=== PATIENT | male | born 1975 | race Hispanic/Latino ===

== ENCOUNTER 2021-06-03 19:48 | Emergency (ER) | payer BC ==
[~2021-06-03] VITALS: Ht 175.3 cm; Wt 98.9 kg
[2021-06-03 20:23] VITALS: BP 125/80
[2021-06-03] MEDS ORDERED: KETOROLAC 60 MG VIAL (30MG/ML) ONE (20:56)
[2021-06-03] MEDS ORDERED: ORPHENADRINE CITRATE 30 MG/ML ML ONE (20:56)
[2021-06-03] MEDS ORDERED: ORPHENADRINE CITRATE 30 MG/ML ML IM ONE (21:00)
[2021-06-03] MEDS ORDERED: KETOROLAC 60 MG VIAL (30MG/ML) IM ONE (21:00)
[2021-06-03] MEDS ORDERED: HYDROCODONE/ACETAMINOPHEN 5/325 MG TAB PO ONE (21:00)
[2021-06-03] MEDS ORDERED: CYCL-309 PO (22:12)
[2021-06-03] MEDS ORDERED: MELO7.5T12 PO (22:12)
[2021-06-05] MEDS ORDERED: ORPHENADRINE CITRATE 30 MG/ML ML IM SCH (06:30)
[2021-06-05] MEDS ORDERED: KETOROLAC 60 MG VIAL (30MG/ML) IM SCH (06:30)
[2021-06-05] MEDS ORDERED: ORPH-43 PO (07:05)
[2021-06-05] MEDS ORDERED: LIDOP TD (07:21)
== END 2021-06-03 22:18 | disposition home or self-care (01) ==
LOC: EDH 19:48
DX: S39.012A Strain of muscle, fascia and tendon of lower back, initial encounter (principal); S29.012A Strain of muscle and tendon of back wall of thorax, initial encounter; S20.212A Contusion of left front wall of thorax, initial encounter; Z79.1 Long term (current) use of non-steroidal anti-inflammatories (NSAID); W18.39XA Other fall on same level, initial encounter; Y93.9 Activity, unspecified; Y92.89 Other specified places as the place of occurrence of the external cause; Y99.8 Other external cause status
CPT/HCPCS: 71101; 72100; 96372 ×2; 99284; J1885; J2360

== ENCOUNTER 2024-03-07 03:23 | Emergency (ER) | payer SELFPAY ==
[~2024-03-07] VITALS: Ht 175.3 cm; Wt 103.9 kg
[~2024-03-07 03:23] MED LIST: CYCL-309 PO; LIDOP TD; MELO7.5T12 PO; ORPH100T4 PO
[2024-03-07] MEDS: ORPHENADRINE 60MG/2ML IM ONE (03:44)
--- NOTE | 2024-03-07 03:44 | ERN ---
General Chief Complaint: Cough Stated Complaint: COUGH, RUNNY NOSE, CHEST PAIN, BACK PAIN Time Seen by MD: 03:25 Source: patient History of Present Illness Initial Comments PATIENT IS A 48-YEAR-OLD MALE COMING IN TO BE EVALUATED FOR LEFT SHOULDER LEFT SCAPULA PAIN. PER PATIENT HE WAS HAVING THIS PAIN ON THE RIGHT PECTORALIS MAJOR RADIATING TO THE POSTERIOR SCAPULAR REGION DECIDED TO COME IN TO BE EVALUATED. Allergies: Coded Allergies: No Known Allergies (Unverified Allergy, Unknown, 06/03/21) Home Meds Active Scripts Lidocaine (Lidoderm Patch 5%) 1 Patch Patch, 1 PATCH TD DAILY for 30 Days, #30 ADH.PATCH 0 Refills Prov:MARIBELL ORTEGA MD 06/05/21 Orphenadrine Citrate (Orphenadrine Citrate) 100 Mg Tablet.er, 100 MG PO [id number], #20 TAB 0 Refills Prov:MARIBELL ORTEGA MD 06/05/21 Cyclobenzaprine HCl (Cyclobenzaprine HCl) 10 Mg Tablet, 10 MG PO TIDP, #20 TAB 0 Refills Prov:MARIBELL ORTEGA MD 06/03/21 Meloxicam (Mobic) 7.5 Mg Tablet, 7.5 MG PO DAILY, #10 TAB 0 Refills Prov:MARIBELL ORTEGA MD 06/03/21 Past Medical History Past Medical History: Bronchitis Past Surgical History: None Social History Social History: Lives with family ROS Dictation CONSTITUTIONAL: NO CHILLS, NO FEVER, NO WEAKNESS, NO DIAPHORESIS, NO MALAISE. HEAD/FACE: NO SIGNS OF TRAUMA. EENT: NO EYE PAIN, NO BLURRED VISION, NO TEARING, NO DOUBLE VISION, NO EAR PAIN, NO EAR DISCHARGE, NO NOSE PAIN, NO NASAL CONGESTION, NO THROAT PAIN, NO THROAT SWELLING, NO MOUTH PAIN. RESPIRATORY: NO COUGH, NO ORTHOPNEA, NO SOB, NO STRIDOR, NO WHEEZING. CARDIOVASCULAR: NO CHEST PAIN, NO EDEMA, NO PALPITATIONS, NO SYNCOPE. GASTROINTESTINAL/ABDOMINAL: NO ABDOMINAL PAIN, NO CONSTIPATION, NO DIARRHEA, NO NAUSEA, NO VOMITING. GENITOURINARY: NO ABNORMAL DISCHARGE, NO DYSURIA, NO FREQUENT URINATION, NO HEMATURIA. NO COMPLAINTS OF PAIN IN THE GENITALS. MUSCULOSKELETAL: NO BACK PAIN, NO GOUT, NO JOINT PAIN, JOINT SWELLING, MUSCLE PAIN, NO MUSCLE STIFFNESS, NO NECK PAIN. INTEGUMENTARY: NO CHANGE IN COLOR, NO CHANGE IN HAIR/NAILS, NO DRYNESS, NO LESION, NO LUMPS, NO RASH. NEUROLOGICAL/PSYCH: NO ANXIETY, NOT DEPRESSED, NO EMOTIONAL PROBLEM, NO HEADACHE, NO NUMBNESS, NO PRE-EXISTING DEFICIT, NO HISTORY OF SEIZURES, NO TREMORS, NO WEAKNESS. HEMATOLOGIC/LYMPHATIC: NOT ANEMIC, NO HISTORY OF BLOOD CLOTS, NO APPARENT BLEEDING, NO BRUISING, GLANDS NOT SWOLLEN. ALL SYSTEMS NEGATIVE, EXCEPT NOTED. Physical Exam Physical Exam Dictation VITAL SIGNS: REVIEWED. GENERAL APPEARANCE: ALERT, ORIENTED X3, NO ACUTE DISTRESS, OBESE. HEAD AND FACE: NON-TRAUMATIC. EYES: PERRL, PINK CONJUNCTIVAS, EYELID NO TRAUMA, ANTERIOR CHAMBER CLEAR. EARS: PINNAS INTACT AND NO SIGNS OF TRAUMA OR ERYTHEMA. EAR CANALS CLEAR AND NO DISCHARGE. TMS NO ERYTHEMA. NOSE: NO DISCHARGE, NO BLEEDING. OROPHARYNX: MOUTH NORMAL, TEETH NO CARIES, TONGUE PINK. PHARYNX CLEAR, NO ERYTHEMA. TONSILS NO EXUDATES, NO ABSCESSES NOTED. MUCOUS MEMBRANE MOIST. NECK: SUPPLE, NON-TENDER, NO THYROMEGALY, NO MASSES, NO JVD, NO BRUITS. BREAST: DEFERRED. CHEST: TENDERNESS, NO CREPITUS, NO PARADOXICAL MOVEMENT, NO RETRACTIONS. LUNGS: CLEAR, WELL-VENTILATED, SYMMETRIC, NO RALES, NO WHEEZING, NO RHONCHI, NO STRIDOR, GOOD BREATH SOUNDS BILATERALLY. HEART: REGULAR RATE, REGULAR RHYTHM, NO MURMUR, NO GALLOPS. VASCULAR: NO PERIPHERAL EDEMA. ABDOMEN: SOFT, POSITIVE BOWEL SOUNDS, NONDISTENDED, NO GUARDING, NONTENDER, NO REBOUND, NO MASSES NO HEPATOMEGALY, NO SPLENOMEGALY, NO BELL'S SIGN, NO HERNIAS. RECTAL: DEFERRED. GENITAL: DEFERRED. NEUROLOGICAL: NORMAL SPEECH, GROSS MOTOR FUNCTION INTACT, GROSS SENSORY FUNCTION INTACT. MUSCULOSKELETAL: NECK NONTENDER, FULL RANGE OF MOTION, CHEMICAL INSTRUMENTATION OFFICER, FULL RANGE OF MOTION. EXTREMITIES: NONTENDER, FULL RANGE OF MOTION. SKIN: COLOR PINK, DRY, NO TURGOR, NO RASH, NO LACERATIONS, NO ABRASIONS, NO CONTUSIONS. LYMPHATICS: DEFERRED. Results EKG/XRAY/US/CT/MRI EKG Comment 03/07/2024 TIME 3:39 A.M. VENTRICULAR RATE 62 NORMAL SINUS RHYTHM MA [address] WAVE ELEVATION OR DEPRESSION MDM MDM: DIFFERENTIAL DIAGNOSIS: SUBSCAPULARIS MUSCLE STRAIN, MUSCLE STRAIN, PECTORALIS MUSCLE STRAIN PATIENT IS A 48-YEAR-OLD MALE COMING IN TO BE EVALUATED FOR RIGHT PECTORALIS MAJOR AND RIGHT SUBSCAPULARIS MUSCLE STRAIN. PT STATES THAT HE WAS LAYING DOWN WOKE UP STARTED HAVING SOME DISCOMFORT IN THAT AREA DECIDED TO COME IN TO BE EVALUATED. EKG PERFORMED NEGATIVE FOR ACUTE FINDINGS. PATIENT RECEIVED SOME ANTISPASMODICS AND ANTI-INFLAMMATORIES STATES THAT PAIN HAS SUBSIDED. PATIENT WILL BE DISCHARGED WITH A DATE NOTICES A SUBSCAPULARIS MUSCLE STRAIN ANTISPASMODICS ANTI-INFLAMMATORIES WILL ALSO BE PRESCRIBED. ED Course Orders Procedure Category Date Status Time Orphenadrine Citrate PHA 03/07/24 In Process (Norflex) 04:00 Ketorolac PHA 03/07/24 In Process Tromethamine 30mg/Ml 04:00 12 Lead Ekg Tracing- EKG 03/07/24 Logged Technical 03:34 Current Medications Medications (Trade) Dose Ordered Sig/Rivera Route PRN Reason Start Time Stop Time Status Last Admin Dose Admin Ketorolac Tromethamine (toRADol) 30 mg ONCE ONCE IM 03/07/24 04:00 03/07/24 04:01 03/07/24 03:45 Orphenadrine Citrate (Norflex) 60 mg ONCE ONCE IM 03/07/24 04:00 03/07/24 04:01 03/07/24 03:44 Vital Signs Date Time Temp Pulse Resp B/P (MAP) Pulse Ox O2 Delivery O2 Flow Rate FiO2 03/07/24 03:24 97.9 68 18 166/89 96 Room Air HEART Score Response (Comments) Value History: Low suspicion (0) 0 EKG: Normal 0 Age: 45-65yrs (+1) 1 Risk Factors: No known risk factors (0) 0 Initial Troponin: Normal limit (0) 0 HEART Score Risk: Low Risk for MACE (1-3) Total 1 DX & DISP Disposition: Discharge Departure Impression: Primary Impression: Acute myofascial strain Condition: Stable Scripts Diclofenac Sodium (Voltaren Arthritis Pain) 1 % Gel..gram. 20 GM TP BID for 14 Days, #1 TUBE Prov: RAFAEL JANE MD 03/07/24 Methocarbamol (Robaxin) 750 Mg Tab 1 TAB PO BID for 7 Days, #14 TAB 0 Refills Prov: RAFAEL JANE MD 03/07/24 Additional Instructions: FOLLOW-UP WITH PRIMARY CARE PROVIDER IN 1 TO 2 DAYS. TAKE MEDICATIONS DIRECTED HERE IN THE EMERGENCY ROOM. OKAY TO CONTINUE HOME MEDICATIONS UNLESS OTHERWISE DISCUSSED DURING YOUR VISIT IN THE EMERGENCY ROOM TODAY. RETURN TO YOUR NEAREST EMERGENCY ROOM IF SYMPTOMS WORSEN OR IF THERE IS NO IMPROVEMENT. CALL 911 IF YOU NEED IMMEDIATE ASSISTANCE. TAKE TYLENOL [id number] NEEDED AND IF NO CONTRAINDICATIONS ARE PRESENT. INCREASE ORAL HYDRATION. A WOUND CULTURE OR URINE CULTURE WAS ORDERED HERE IN THE EMERGENCY ROOM DEPARTMENT PLEASE FOLLOW-UP WITH PRIMARY CARE PROVIDER AND ADVISE THEM TO GET REPEAT PORTS FROM OUR FACILITY. IF YOU HAD ANY MARIZOL WRAP/SPLINTS THAT WERE APPLIED HERE, PL EASE DO NOT REMOVE THEM UNTIL YOU SEE YOUR PRIMARY CARE OR SPECIALTY. REFERRALS: Referrals: SELF,REFERRAL (PCP) OSEI WALKER MD Time of Disposition: 04:00 RAFAEL JANE MD Mar 07, 2024 03:44
[2024-03-07] MEDS: ketOROlac 30MG VIAL (30MG/ML) IM ONE (03:45)
[2024-03-07] MEDS ORDERED: DICL20GE TP (04:01)
[2024-03-07] MEDS ORDERED: METH-662 PO (04:01)
[2024-03-07 04:08] VITALS: BP 145/84; PULSE 71; RESP 20; TEMP 98.5; O2SAT 96
--- NOTE | 2024-03-07 05:49 | EKG ---
[facility] Test Date: 2024-03-07 Test Time: 03:39:35 Pat Name: MINDI MONTILLA Department: ED Room: Gender: M Pitch Worker: [id number] : [id number] Requested By: RAFAEL JANE Order Number: [id number] Reading MD: Maxine Villalta Measurements Intervals Seaman Rate: 62 P: 38 MD: 162 QRS: 21 QRSD: 92 T: -25 QT: 407 QTc: 415 Interpretive Statements Sinus rhythm No previous ECG available for comparison Electronically Signed On 03-09-2024 11:33:15 REVERBERATORY FURNACE OPERATOR by Maxine Villalta Please click the below link to view image of tracing.
== END 2024-03-07 04:23 | disposition home or self-care (01) ==
LOC: EDH 03:23
DX: S46.812A Strain of other muscles, fascia and tendons at shoulder and upper arm level, left arm, initial encounter (principal); Z79.1 Long term (current) use of non-steroidal anti-inflammatories (NSAID); X58.XXXA Exposure to other specified factors, initial encounter; Y93.89 Activity, other specified; Y92.89 Other specified places as the place of occurrence of the external cause; Y99.8 Other external cause status
CPT/HCPCS: 99284; 96372 ×2; 93005; J1885; J2360

== ENCOUNTER 2024-05-15 02:07 | Emergency (ER) | payer SELFPAY ==
[~2024-05-15] VITALS: Ht 175.3 cm; Wt 106.6 kg
[~2024-05-15 02:07] MED LIST changes: +DICL20GE TP; +METH-662 PO
[2024-05-15] MEDS: acetaMINOPHEN 325 MG TAB PO ONE (02:20)
--- NOTE | 2024-05-15 02:55 | ERN ---
ED Note History of Present Illness Stated Complaint: FLU Chief Complaint: Flu Symptoms Time Seen by MD: 02:28 Dictation: This is a 48-year-old obese male who presented to the emergency room with complaints of body aches headache and feeling dehydrated for the past 2 days. He thought he had the flu and came in for evaluation He had left-sided molar tooth extracted a couple of days ago Temperature 99.7 pulse 110 respirations 18 blood pressure 163/110 pulse oximetry 95% on room air Allergies: Coded Allergies: No Known Allergies (Unverified Allergy, Unknown, 06/03/21) Home Meds Active Scripts Amoxicillin/Potassium Clav (Augmentin 500-125 Tablet) 500 Mg-125 Mg Tablet, 1 TAB PO BID for 10 Days, #20 TAB 0 Refills Prov:KEVIN SCOTT MD 05/15/24 Diclofenac Sodium (Voltaren Arthritis Pain) 1 % Gel..gram., 20 GM TP BID for 14 Days, #1 TUBE Prov:RAFAEL JANE MD 03/07/24 Methocarbamol (Robaxin) 750 Mg Tab, 1 TAB PO BID for 7 Days, #14 TAB 0 Refills Prov:RAFAEL JANE MD 03/07/24 Lidocaine (Lidoderm Patch 5%) 1 Patch Patch, 1 PATCH TD DAILY for 30 Days, #30 ADH.PATCH 0 Refills Prov:MARIBELL ORTEGA MD 06/05/21 Orphenadrine Citrate (Orphenadrine Citrate) 100 Mg Tablet.er, 100 MG PO [id number], #20 TAB 0 Refills Prov:MARIBELL ORTEGA MD 06/05/21 Cyclobenzaprine HCl (Cyclobenzaprine HCl) 10 Mg Tablet, 10 MG PO TIDP, #20 TAB 0 Refills Prov:MARIBELL ORTEGA MD 06/03/21 Meloxicam (Mobic) 7.5 Mg Tablet, 7.5 MG PO DAILY, #10 TAB 0 Refills Prov:MARIBELL ORTEGA MD 06/03/21 Past Medical History Past Medical History: Pneumonia Surgical History: Other Surgical History Other: LEFT ANKLE SX Family History: Negative Social History: Lives with family RN Note Reviewed/Agreed w/PFSH: Yes Review of System Dictation Constitutional: Positive for fever,chills, body aches and denied weight loss Eyes: Negative for injury, pain,redness, and discharge ENT: Negative for injury,pain or swelling Cardiovascular: Negative for chest pain, palpitations, and edema Respiratory: Negative for shortness of breath, cough, and wheezing, Abdomen/GI: Negative for abdominal pain, nausea, vomiting, diarrhea, and constipation Back: Negative for injury and pain : Negative for injury, bleeding and discharge MS/Extremity: Negative for injury and deformity Skin: Negative for rash, and discoloration Neuro: Negative for headache, weakness, numbness, tingling, and seizure Psych: Negative for suicide ideation, homicidal ideation, and hallucinations Initial Vital Sign VS Vital Signs Date Time Temp Pulse Resp B/P (MAP) Pulse Ox O2 Delivery O2 Flow Rate FiO2 05/15/24 02:09 99.7 110 18 163/110 95 Room Air 0 05/15/24 03:38 21 Physical Exam Dictation General: awake, alert, NAD Head/Face: Normocephalic, atraumatic Eyes: PERRL, EOMI, vision at baseline ENT: oral cavity clear, TMs clear, no signs of infection Neck: Trachea midline, supple, no nuchal rigidity Cardiovascular: RRR, normal S1/S2, No MRGs, no JVD Respiratory: CTAB, no respiratory distress, No rales or wheezes Abdomen: Soft, non-tender, non-distended, normal bowel sounds, no guarding or rebound. Skin: Warm, dry, normal turgor, no rash MS/Extremity: Pulses equal, no cyanosis, neurovascular intact, FROM Neuro: COAx4, GCS 15, strength 5/5, CN 2-12 intact, normal cerebellar exam, normal gait, Psych: Normal behavior, mood, and affect normal Extremities-trace edema without any palpable cords, Homans sign is negative Results (Laboratory/Radiology) Laboratory/Radiology Laboratory Tests Test 05/15/24 03:11 Influenza Type A Antigen Negative For Type A Influenza Type B Antigen Negative For Type B SARS-CoV-2 Antigen (Rapid) PRESUMPTIVE NEGATIVE Group A Streptococcus Rapid positive (NEGATIVE) *A Labs Reviewed?: Yes ED Course ED Course Orders Procedure Category Date Status Time Covid19 (Sars Antigen LAB 05/15/24 Complete Rapid) 02:13 Influenza Type A & B, LAB 05/15/24 Complete Rapid 02:13 Rapid (Group A Strep) LAB 05/15/24 Complete 02:13 Acetaminophen 325 Tab PHA 05/15/24 Complete (Tylenol 325mg Tab 02:30 Amox/Clav 875/125mg PHA 05/15/24 In Process Tab (Augmentin 875-1 05:00 Current Medications Medications (Trade) Dose Ordered Sig/Rivera Route PRN Reason Start Time Stop Time Status Last Admin Dose Admin Acetaminophen (TYLenol 325MG TAB) 650 mg ONCE ONCE PO 05/15/24 02:30 05/15/24 02:31 DC 05/15/24 02:20 Amoxicillin/ Clavulanate Potassium (Augmentin 875-125 Tablet) 1 each ONCE ONCE PO 05/15/24 05:00 05/15/24 05:01 Vital Signs Date Time Temp Pulse Resp B/P (MAP) Pulse Ox O2 Delivery O2 Flow Rate FiO2 05/15/24 03:38 100.8 95 20 152/86 96 Room Air* 0 21 05/15/24 02:20 99.7 05/15/24 02:09 99.7 110 18 163/110 95 Room Air 0 We will perform diagnostic labs, advanced imaging and administer medications according to the patient's complaint. Once the results are available, will review and personally interpreted the labs to rule out any acute life- threatening emergency the trach require immediate intervention and treatment. I will then re-evaluate the patient after treatment and diagnostic exams have return to determine whether the patient requires any further testing, can safely be discharged home or need further admission to hospital for additional tr eatment and evaluation. Viral serology was negative for influenza and COVID. Swabs were positive for streptococcal pharyngitis . Dose of Augmentin and DC on Augmentin. Medical Decision Making MDM MDM: Differential diagnosis: Acute viral syndrome, influenza, COVID, strep throat Rationale: Tests considered and ordered secondary to shared decision making include: Previous outside records reviewed: Old ER visits. Risk of complication and/or morbidity or mortality of patient management: None Medications-Per medication reconciliation Need for hospitalization: Patient does not meet criteria for hospitalization. Need for emergency major/minor surgery: No There are no social concerns with this patient. Prescription drug management Prescriptions will include symptomatic care Patient's prior external medical records from other ER visits were reviewed by me as indicated. Prior testing and results from previous visits were reviewed. Prior tests were taken into account with medical decision making and resource utilization, independent historian/historians were used to obtain complete medical history. I independently interpreted the test that were performed, results were reviewed by me and considered findings on radiology if ordered. Medical management and examination interpretation discussions were had by me with other qualified healthcare professionals as indicated for the patient's care. Problem List Problem List: (1) Strep pharyngitis (2) Viral syndrome DX & DISP Disposition: Discharge Departure Impression: Primary Impression: Viral syndrome Additional Impression: Strep pharyngitis Condition: Stable Scripts Amoxicillin/Potassium Clav (Augmentin 500-125 Tablet) 500 Mg-125 Mg Tablet 1 TAB PO BID for 10 Days, #20 TAB 0 Refills Prov: KEVIN SCOTT MD 05/15/24 Additional Instructions: Patient and the caregiver have been informed of all the diagnostic tests and the imaging conducted during the today's visit to the emergency room and has verbalized understanding of the results I have personally reviewed and interpreted all diagnostic exams performed here in the ER today as well as the vital signs documented by the nursing staff. The patient is now being discharged to home and should follow up with the primary care physician or the specialist as directed by the ER staff. Follow-up with primary care provider in 1 to 2 days. Take medications as directed here in the emergency room. Okay to continue home medications unless otherwise discussed during your visit in the emergency room today. Return to your nearest emergency room if symptoms worsen or if there is no improvement. Call 911 if you need immediate assistance. Take Tylenol or Motrin [id number] as needed and if no contraindications are present. Increase oral hydration. A wound culture or urine culture was ordered here in the emergency room department please follow-up with primary care provider and advise them to get repeat ports from our facility. If you had any Jorgito wrap/splints that were applied here, please do not remove them until you see your primary care or specialty. Referrals: SELF,REFERRAL (PCP) KEVIN SCOTT MD May 15, 2024 02:55
[2024-05-15 03:41] VITALS: TEMP 100.8
[2024-05-15 03:41] LABS: INFLUENZA TYPE A Negative For Type A (NEGATIVE); INFLUENZA TYPE B Negative For Type B (NEGATIVE)
[2024-05-15 04:20] LABS: COVID19 (SARS ANTIGEN RAPID) PRESUMPTIVE NEGATIVE (NEGATIVE)
[2024-05-15 04:34] LABS: RAPID GROUP A STREP positive (NEGATIVE)
[2024-05-15] MEDS ORDERED: AMOX-426 PO (04:48)
[2024-05-15] MEDS: AMOX/CLAV 875/125MG TAB PO ONE (04:51)
[2024-05-15] MEDS: ketOROlac 30MG VIAL (30MG/ML) IM ONE ×2 (04:53→05:00)
[2024-05-15 05:17] VITALS: BP 143/80; PULSE 90; RESP 18; TEMP 98.9; O2SAT 96
== END 2024-05-15 05:18 | disposition home or self-care (01) ==
LOC: EDH 02:07
DX: J02.0 Streptococcal pharyngitis (principal); Z79.1 Long term (current) use of non-steroidal anti-inflammatories (NSAID); Z20.822 Contact with and (suspected) exposure to COVID-19
CPT/HCPCS: 99283; 87426; 87880; 87804 ×2; 96372; J1885

== ENCOUNTER 2025-01-01 07:46 | Emergency (ER) | payer SELFPAY ==
[~2025-01-01] VITALS: Ht 175.3 cm; Wt 100.7 kg
[~2025-01-01 07:46] MED LIST changes: +AMOX-426 PO
[2025-01-01 07:47] VITALS: BP 140/92; PULSE 77; RESP 18; TEMP 98
--- NOTE | 2025-01-01 07:52 | ERN ---
General Chief Complaint: Ankle Problem Stated Complaint: LEFT ANKLE PAIN Time Seen by MD: 07:48 History of Present Illness Initial Comments 49-year-old male who presents for left ankle injury. Yesterday he was in the shower any misstepped. He banged the lateral side of his left ankle and foot. He has a bruising this morning with swelling. Neurovascularly intact. No other injuries. No blood thinners. He is ambulatory with an antalgic gait. Allergies: Coded Allergies: No Known Allergies (Unverified Allergy, Unknown, 06/03/21) Home Meds Active Scripts Meloxicam (Meloxicam) 15 Mg Tablet, 15 MG PO DAILY PRN for PAIN for 10 Days, #10 TAB Prov:ANIKA MANCINI DO 01/01/25 Amoxicillin/Potassium Clav (Augmentin 500-125 Tablet) 500 Mg-125 Mg Tablet, 1 TAB PO BID for 10 Days, #20 TAB 0 Refills Prov:KEVIN SCOTT MD 05/15/24 Diclofenac Sodium (Voltaren Arthritis Pain) 1 % Gel..gram., 20 GM TP BID for 14 Days, #1 TUBE Prov:RAFAEL JANE MD 03/07/24 Methocarbamol (Robaxin) 750 Mg Tab, 1 TAB PO BID for 7 Days, #14 TAB 0 Refills Prov:RAFAEL JANE MD 03/07/24 Lidocaine (Lidoderm Patch 5%) 1 Patch Patch, 1 PATCH TD DAILY for 30 Days, #30 ADH.PATCH 0 Refills Prov:MARIBELL ORTEGA MD 06/05/21 Orphenadrine Citrate (Orphenadrine Citrate) 100 Mg Tablet.er, 100 MG PO [id number], #20 TAB 0 Refills Prov:MARIBELL ORTEGA MD 06/05/21 Cyclobenzaprine HCl (Cyclobenzaprine HCl) 10 Mg Tablet, 10 MG PO TIDP, #20 TAB 0 Refills Prov:MARIBELL ORTEGA MD 06/03/21 Meloxicam (Mobic) 7.5 Mg Tablet, 7.5 MG PO DAILY, #10 TAB 0 Refills Prov:MARIBELL ORTEGA MD 06/03/21 Past Medical History Past Medical History: Pneumonia Past Surgical History: Other Surgical History Other: LEFT ANKLE SX Family History Family History: Negative Social History Social History: Lives with family ROS Dictation CONSTITUTIONAL: No chills, no fever, no weakness, no diaphoresis, no malaise. HEAD/FACE: No signs of trauma. EENT: No eye pain, no blurred vision, no tearing, no double vision, no ear pain, no ear discharge, no nose pain, no nasal congestion, no throat pain, no throat swelling, no mouth pain. RESPIRATORY: No cough, no orthopnea, no SOB, no stridor, no wheezing. CARDIOVASCULAR: No chest pain, no edema, no palpitations, no syncope. GASTROINTESTINAL/ABDOMINAL: No abdominal pain, no constipation, no diarrhea, no nausea, no vomiting. GENITOURINARY: No abnormal discharge, no dysuria, no frequent urination, no hematuria. No complaints of pain in the genitals. MUSCULOSKELETAL: Left ankle pain and injury INTEGUMENTARY: No change in color, no change in hair/nails, no dryness, no lesion, no lumps, no rash. NEUROLOGICAL/PSYCH: No anxiety, not depressed, no emotional problem, no headache, no numbness, no pre-existing deficit, no history of seizures, no tremors, no weakness. HEMATOLOGIC/LYMPHATIC: Not anemic, no history of blood clots, no apparent bleeding, no bruising, glands not swollen. All Systems Negative, Except as Noted. Physical Exam Physical Exam Dictation VITAL SIGNS: Reviewed. GENERAL APPEARANCE: Alert, oriented x3, no acute distress HEAD AND FACE: Non-traumatic. EYES: PERRL, pink conjunctivas, eyelid no trauma, anterior chamber clear. EARS: Pinnas intact and no signs of trauma or erythema. Ear canals clear and no discharge. TMs no erythema. NOSE: No discharge, no bleeding. OROPHARYNX: Mouth normal, teeth no caries, tongue pink. Pharynx clear, no erythema. Tonsils no exudates, no abscesses noted. Mucous membrane moist. NECK: Supple, non-tender, no thyromegaly, no masses, no JVD, no bruits. BREAST: Deferred. CHEST: No tenderness, no crepitus, no paradoxical movement, no retractions. LUNGS: Clear, well-ventilated, symmetric, no rales, no wheezing, no rhonchi, no stridor, good breath sounds bilaterally. HEART: Regular rate, regular rhythm, no murmur, no gallops. VASCULAR: No peripheral edema. ABDOMEN: Soft, positive bowel sounds, nondistended, no guarding, nontender, no rebound, no masses no hepatomegaly, no splenomegaly, no Villeda's sign, no hernias. RECTAL: Deferred. GENITAL: Deferred. NEUROLOGICAL: Normal speech, gross motor function intact, gross sensory function intact. MUSCULOSKELETAL: Neck nontender, full range of motion, back nontender, full range of motion. Left ankle swelling to the lateral malleolus in the lateral side of the foot, some bruising. Neurovascularly intact. EXTREMITIES: Nontender, full range of motion. SKIN: Color pink, dry, no turgor, no rash, no lacerations, no abrasions, no contusions. LYMPHATICS: Deferred. MDM CC: Left ankle and foot pain Historian: Patient No comorbidities No limitations Differential diagnosis: Fracture versus soft tissue injury versus hardware malalignment Vital signs are stable Clinically patient has some swelling to the left lateral foot and ankle. Neurovascularly intact. He is ambulatory with an antalgic gait able to put some weight on it. X-ray of the foot and ankle per my independent interpretation shows no acute fractures or bony abnormalities. Mild soft tissue swelling. Hardware appears intact. Patient given an Jorgito wrap. Symptoms are most consistent with sprain/strain or soft tissue injury. We will recommend conservative management and PCP follow up. ED Course Orders Procedure Category Date Status Time Ankle Comp 3vws Lt RAD 01/01/25 Resulted 07:48 Foot Comp 3+Vws Lt RAD 01/01/25 Resulted 07:48 Vital Signs Date Time Temp Pulse Resp B/P (MAP) Pulse Ox O2 Delivery O2 Flow Rate FiO2 01/01/25 07:47 98.1 77 18 140/92 97 Room Air DX & DISP Disposition: Discharge Departure Impression: Primary Impression: Injury of left foot Condition: Stable Scripts Meloxicam (Meloxicam) 15 Mg Tablet 15 MG PO DAILY PRN for PAIN for 10 Days, #10 TAB Prov: ANIKA MANCINI DO 01/01/25 Additional Instructions: The x-rays do not show any new fractures. The hardware is in place. You likely have a soft tissue injury or sprain/strain. Wear the Jorgito wrap that you have been provided. Elevate your foot as much as possible. Bear weight as tolerated. Apply ice frequently with the next few days to reduce swelling and inflammation. I have prescribed meloxicam, which is a nonsteroidal anti-inflammatory pain medication. You can take this once per day as needed for pain. You can also take vlix-qdm-gkaryng Tylenol (1000 mg) up to 4 times a day as needed for the next few days. If you continue with symptoms after a week or so, I recommend that you follow up with the primary doctor for re-evaluation. Please return to the emergency department as needed. Referrals: SELF,REFERRAL (PCP) ANIKA MANCINI DO Jan 01, 2025 07:52
[2025-01-01] MEDS ORDERED: MELO-108 PO (08:50)
--- NOTE | 2025-01-01 09:03 | HMCIMG ---
EXAMS: XR ANKLE 3 PLUS VIEWS, LEFT. XR FOOT 3 PLUS VIEWS, LEFT. HISTORY: Injury lateral ankle and foot. COMPARISON: None. TECHNIQUE: Three views of the left ankle. Three views of the left foot. FINDINGS: Bone screw extending into the distal fibula. 2 bone screws extending into the medial malleolus. No acute fracture or dislocation is evident. No significant osseous lesion is identified. No abnormal radiodense foreign body is seen in the soft tissues. Ankle mortise is maintained. No acute fracture. No hardware failure or loosening. Small plantar calcaneus spur. IMPRESSION: Left ankle. Negative for fracture or acute osseous abnormality. Left ankle with postsurgical changes with screws within the medial malleolus and distal fibula. No hardware failure or definite loosening. Left foot. Negative for fracture or acute osseous abnormality. /Anderson
== END 2025-01-01 09:08 | disposition home or self-care (01) ==
LOC: EDH 07:46
DX: S99.922A Unspecified injury of left foot, initial encounter (principal); Z79.1 Long term (current) use of non-steroidal anti-inflammatories (NSAID); W18.2XXA Fall in (into) shower or empty bathtub, initial encounter; Y93.89 Activity, other specified; Y92.89 Other specified places as the place of occurrence of the external cause; Y99.8 Other external cause status
CPT/HCPCS: 73610; 73630; 99284